=== PATIENT | male | born 1940 | race Caucasian/White ===

== ENCOUNTER → 2025-08-25 11:39 | Outpatient (CLI) | payer MEDICARE, SELFPAY ==
--- NOTE | 2025-08-25 11:43 | DI.US.S_ITS ---
PROCEDURE: US RENAL COMPLETE INDICATIONS: kidney failure TECHNIQUE: Real-time scanning was performed of the kidneys and bladder, with image documentation. COMPARISON: None. FINDINGS: Kidneys: Kidneys are normal in size. Right kidney measures 10.7 cm long; left kidney measures 10.8 cm long. Right renal cortical thickness is 0.8 cm; left renal cortical thickness is 1.0 cm. Renal cortical echotexture is increased. No hydronephrosis or nephrolithiasis. No suspicious solid mass lesions. Left exophytic lower pole 1.8 x 1.8 x 1.9 cm cyst. Bladder: Both ureteral jets are noted with color Doppler interrogation. (Of note, ureteral jets may not be detectable in up to 25% of cases due to insufficient differences in specific gravity between ureteral and bladder urine). Miscellaneous: No free pelvic fluid. IMPRESSION: Bilateral renal increased renal cortical echogenicity consistent with medical renal disease. No hydronephrosis or nephrolithiasis. Dictated by: Wilver STAHL Interpreted: Jasson Holloway MD on 08/25/2025 at 14:05 Approved by: Jasson Holloway M.D. on 08/26/2025 at 15:54
== END ==
LOC: US 11:42
PROVIDERS: Referring Provider Internal Medicine Hematology & Oncology; Visit Provider Internal Medicine Hematology & Oncology
DX: N17.8 Other acute kidney failure (principal)
CPT/HCPCS: 76770